=== PATIENT | female | born 1995 ===

== ENCOUNTER 2016-04-02 18:57 | Emergency (ER) | payer OTHER ==
--- NOTE | 2016-04-02 21:10 | ED ORDER SUMMARY ---
..... Patient: NOE MAGALLANES OrderSheet [facility] VisitID: [id number] [place] [address] 20y, F Registration Date/Time: 04/02/2016 ORDER SHEET Weight: 72.5 kg (stated) Allergies: None GENERAL ORDERS: US Pelvic Complete w Transvag Urgent (19:08 04/02/2016 EKoroleva P.A.-C) (Ack 19:12 LTapper) (21:00 AMcQuoid ER Tech1) UA-Culture if indicated Urgent (19:09 04/02/2016 EKoroleva P.A.-C) (Ack 19:12 LTapper) (Sent 19:36 IJurca ER Tech1) (19:50 AMcQuoid ER Tech1) Urine Urgent (19:09 04/02/2016 EKoroleva P.A.-C) (Ack 19:12 LTapper) (Sent 19:36 IJurca ER Tech1) (19:50 AMcQuoid ER Tech1) CBC w Diff Urgent (19:09 04/02/2016 EKoroleva P.A.-C) (Ack 19:12 LTapper) (Sent 19:22 IJurca ER Tech1) (19:50 AMcQuoid ER Tech1) CMP Urgent (19:09 04/02/2016 EKoroleva P.A.-C) (Ack 19:12 LTapper) (Sent 19:22 IJurca ER Tech1) (19:50 AMcQuoid ER Tech1) Wet Prep (Cervix) (c) Urgent (19:57 04/02/2016 EKoroleva P.A.-C) (Ack 20:10 IJurca ER Tech1) (20:23 HSoule) GC/Chlamydia (Cervix) (c) Urgent (19:57 04/02/2016 EKoroleva P.A.-C) (Ack 20:10 IJurca ER Tech1) (20:23 HSoule) MEDICATION ORDERS: Hydrocodone-APAP PO 10/650 mg (NOW, HIGH ALERT MEDICATION) (20:37 04/02/2016 EKoroleva P.A.-C) (Ack 20:39 HSoule) (21:07 HSoule) IV FLUIDS: ORDER SHEET NOTES: [Electronically signed by Kendal Melendez (:29 04/02/2016)] [Electronically signed by Neyda Castro P.A.-C (21:55 04/02/2016)] [Electronically locked/signed by Kendal Melendez (:29 04/02/2016)]
--- NOTE | 2016-04-02 21:10 | ED CLINICAL REPORT ---
Clinical Report - Physicians/Mid Levels [facility] [address] [place] [place] [address] 04/02/2016 18:58 Patient: NOE MAGALLANES Time Seen: 19:04 Apr 02 2016. Arrived- By private vehicle. Historian- patient. HISTORY OF PRESENT ILLNESS Chief Complaint: ABDOMINAL PAIN. It is described as located in the pelvic area and in the left pelvis. 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 No nausea, loss of appetite, vomiting or diarrhea. (Patient was abdominal pain and cramping over the last 3 weeks, worsening over the last 2 days. Reports currently on her menses, which is her normal time frame. Patient denies any diarrhea or emesis. Denies any fevers or chills or difficulty urinating. Sexually active with partner (male) in er, with no h/o std.). REVIEW OF SYSTEMS No constipation, black stools, difficulty with urination, pain with urination or urinary frequency. No fever, chest pain or chills. All systems otherwise negative, except as recorded above. PAST HISTORY Problems: Syncope. Medications: None. Allergies: None. SOCIAL HISTORY Smoker- current status unknown. No alcohol use or drug use. ADDITIONAL NOTES The nursing notes have been reviewed. PHYSICAL EXAM Vital Signs: 04/02/2016 19:06 BP: 114/67. HR: 60. RR: 18. O2 saturation: 97%. Temp: 99.5 F. Pain level now: 7/10. ENT: Ears normal. Nose normal. Pharynx normal. Neck: Normal inspection. No lymphadenopathy or thyromegaly. CVS: Normal heart rate and rhythm. Pulses normal. Respiratory: No respiratory distress. Breath sounds normal. No accessory muscle use or decreased air movement. Abdomen: Soft and nontender. No abdominal tenderness. The bowel sounds are not abnormal. Back: Normal inspection. No CVA tenderness. Neuro: Oriented X 3. LABS, X-RAYS, AND EKG Laboratory Tests: UA-Culture if indicated: (BENNY: 04/02/2016 19:33) ( MsgRcvd 04/02/2016 19:52) Final results Test Result Flag Units (Reference) URINE COLOR YELLOW URINE APPEARANCE CLEAR URINE GLUCOSE NEGATIVE (NEGATIVE) URINE BILIRUBIN NEGATIVE (NEGATIVE) URINE KETONE NEGATIVE (NEGATIVE) URINE SPECIFIC GRAVITY 1.015 (1.010-1.030) URINE PH 7.0 (5.0-8.0) URINE PROTEIN NEGATIVE (NEGATIVE) URINE UROBILINOGEN 0.2 EU/dL (0.2-1.0) URINE NITRITE NEGATIVE (NEGATIVE) URINE BLOOD 2+ (NEGATIVE) URINE LEUK ESTERASE NEGATIVE (NEGATIVE) URINE RBC 5-10 rbc/hpf (0-1) URINE WBC 0-1 wbc/hpf (0-1) URINE EPITHELIAL CELLS 0-1 EPI/hpf (0-5) URINE BACTERIA NONE SEEN (NONE SEEN) URINE COMMENT CULT NOT INDICATED URINE CULTURES ARE SET-UP BASED ON THE FOLLOWING CRITERIA:POSITIVE NITRITEPOSITIVE LEUKOCYTE ESTERASEGREATER THAN 10 WHITE BLOOD CELLSMODERATE (2+) OR GREATER BACTERIA Urine: (BENNY: 04/02/2016 19:33) ( [facility] 04/02/2016 19:44) Final results Test Result Flag Units (Reference) URINE NEGATIVE CBC w Diff: (BENNY: 04/02/2016 19:15) ( [facility] 04/02/2016 19:28) Final results Test Result Flag Units (Reference) WHITE BLOOD COUNT 8.9 K/uL (4.5-11.5) RED BLOOD COUNT 4.74 M/uL (4.00-5.20) HEMOGLOBIN 12.9 gm/dL (12.0-16.0) HEMATOCRIT 38.6 % (36.0-46.0) MEAN CELL VOLUME 82 fL (80-100) MEAN CORPUSCULAR HGB 27 pg (26-34) MEAN CORPUSCULAR HGB CONC 34 g/dL (31-37) RED CELL DISTRIBUTION WIDTH 14.9 H % (11.6-14.8) PLATELET COUNT 346 K/uL (150-400) NEUTROPHIL % 59.7 % (50-75) LYMPH % 31.9 % (25-40) MONO % 4.5 % (3-14) EOSINOPHIL % 3.6 % (0-4) BASOPHIL % 0.3 % (0-2) CMP: (BENNY: 04/02/2016 19:15) ( [facility] 04/02/2016 19:46) Final results Test Result Flag Units (Reference) GLUCOSE 103 mg/dL (70-110) BUN 11 mg/dL (7-18) CREATININE 0.8 mg/dL (0.6-1.3) Estimated GFR >60 mL/min Estimated GFR- >60 mL/min Note: Persistent reduction over 3 months in eGFR<60 mL/min/1.73 m2 defines CKD. Patients with eGFR values>=60 mL/min/1.73 m2 may also have CKD if evidence ofpersistent proteinuria. Additional information may be foundat www.[email or web address].org. SODIUM 140 mmol/L (136-145) POTASSIUM 3.8 mmol/L (3.5-5.1) CHLORIDE 103 mmol/L (98-107) CARBON DIOXIDE 26 mmol/L (21-32) CALCIUM 9.2 mg/dL (8.5-10.1) TOTAL PROTEIN 7.9 g/dL (6.4-8.2) ALBUMIN 3.9 g/dL (3.3-5.0) BILIRUBIN, TOTAL 0.2 mg/dL (0.0-1.0) ALKALINE PHOSPHATASE 84 U/L (46-116) AST (SGOT) 10 L U/L (15-37) ALT (SGPT) 21 U/L (12-78) Wet Prep: (BENNY: 04/02/2016 19:25) ( [facility] 04/02/2016 20:07) Final results SPECIMEN DESCRIPTION: C Test Result Flag Units (Reference) WET MOUNT CLUE CELLS:: NONE EPITHELIAL CELLS: FEW -- SOURCE?: CERVIX WHITE BLOOD CELLS: FEW TRICHOMONAS:: NONE -- YEAST:: NONE . Note - Tests: (US NEG). PROGRESS AND PROCEDURES Course of Care: Chaperoned pelvic exam During the time in the ED, the following DDX were considered: acute surgical abdomen, hemodynamic or metabolic instability, dehydration, gastroenteritis-viral, food borne, or bacterial, food intolerance, irritable or inflammatory bowel, infection, sepsis. NO mcburneys pt tendernss, neg upreg, no signs of torsion, no signs of toa. 04/02/2016 21:15 BP: 112/60. HR: 70. RR: 20. O2 saturation: 98%. Temp: 99 F. Pain level now: 8/10. Patient is stable. Physical exam findings are improved. Symptoms better. Patient/family counseled. Differential Diagnosis: I considered gastric etiology, gastritis, acute appendicitis, diverticulitis, biliary colic, hepatitis, splenic injury, splenic rupture, splenic infarction, splenic abscess, intraabdominal abscess, urinary tract infection, cystitis, ovarian cyst, pelvic inflammatory disease, pelvic abscess and abdominal aortic aneurysm as a possible cause of abdominal pain in this patient. This is a partial list of diagnoses considered. Disposition: Discharged. CLINICAL IMPRESSION Acute pelvic pain. INSTRUCTIONS Drink plenty of fluids. Prescription Medications: Ultram 50 mg: take 1 orally every 6 hours for 3 days, as needed for pain. Dispense ten (10). No refills. Substitution is permissible. OTC Medications: Take acetaminophen (Tylenol, Datril, etc.) and ibuprofen (Advil, Nuprin, etc.) according to label instructions. Available over the counter. Follow-up: Follow up with your doctor in three days. Follow-up with: Mack Spaulding MD, Obstetrics/Gynecology, , [facility], [address] [place] [address] Follow up. Call for the next available appointment. (Electronically signed by Neyda Castro P.A.-C 04/02/2016 21:55)
--- NOTE | 2016-04-02 21:10 | ED ORDER SUMMARY ---
..... Patient: NOE MAGALLANES OrderSheet [facility] VisitID: [id number] [place] [address] 20y, F Registration Date/Time: 04/02/2016 ORDER SHEET Weight: 72.5 kg (stated) Allergies: None GENERAL ORDERS: US Pelvic Complete w Transvag Urgent (19:08 04/02/2016 EKoroleva P.A.-C) (Ack 19:12 LTapper) (21:00 AMcQuoid ER Tech1) UA-Culture if indicated Urgent (19:09 04/02/2016 EKoroleva P.A.-C) (Ack 19:12 LTapper) (Sent 19:36 IJurca ER Tech1) (19:50 AMcQuoid ER Tech1) Urine Urgent (19:09 04/02/2016 EKoroleva P.A.-C) (Ack 19:12 LTapper) (Sent 19:36 IJurca ER Tech1) (19:50 AMcQuoid ER Tech1) CBC w Diff Urgent (19:09 04/02/2016 EKoroleva P.A.-C) (Ack 19:12 LTapper) (Sent 19:22 IJurca ER Tech1) (19:50 AMcQuoid ER Tech1) CMP Urgent (19:09 04/02/2016 EKoroleva P.A.-C) (Ack 19:12 LTapper) (Sent 19:22 IJurca ER Tech1) (19:50 AMcQuoid ER Tech1) Wet Prep (Cervix) (c) Urgent (19:57 04/02/2016 EKoroleva P.A.-C) (Ack 20:10 IJurca ER Tech1) (20:23 HSoule) GC/Chlamydia (Cervix) (c) Urgent (19:57 04/02/2016 EKoroleva P.A.-C) (Ack 20:10 IJurca ER Tech1) (20:23 HSoule) MEDICATION ORDERS: Hydrocodone-APAP PO 10/650 mg (NOW, HIGH ALERT MEDICATION) (20:37 04/02/2016 EKoroleva P.A.-C) (Ack 20:39 HSoule) (21:07 HSoule) IV FLUIDS: ORDER SHEET NOTES: [Electronically signed by Kendal Melendez (:29 04/02/2016)] [Electronically signed by Neyda Castro P.A.-C (21:55 04/02/2016)] [Electronically locked/signed by Kendal Melendez (:29 04/02/2016)]
--- NOTE | 2016-04-02 21:10 | ED CLINICAL REPORT ---
Clinical Report - Physicians/Mid Levels [facility] [address] [place] [address] 04/02/2016 18:58 Patient: NOE MAGALLANES Time Seen: 19:04 Apr 02 2016. Arrived- By private vehicle. Historian- patient. HISTORY OF PRESENT ILLNESS Chief Complaint: ABDOMINAL PAIN. It is described as located in the pelvic area and in the left pelvis. 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 No nausea, loss of appetite, vomiting or diarrhea. (Patient was abdominal pain and cramping over the last 3 weeks, worsening over the last 2 days. Reports currently on her menses, which is her normal time frame. Patient denies any diarrhea or emesis. Denies any fevers or chills or difficulty urinating. Sexually active with partner (male) in er, with no h/o std.). REVIEW OF SYSTEMS No constipation, black stools, difficulty with urination, pain with urination or urinary frequency. No fever, chest pain or chills. All systems otherwise negative, except as recorded above. PAST HISTORY Problems: Syncope. Medications: None. Allergies: None. SOCIAL HISTORY Smoker- current status unknown. No alcohol use or drug use. ADDITIONAL NOTES The nursing notes have been reviewed. PHYSICAL EXAM Vital Signs: 04/02/2016 19:06 BP: 114/67. HR: 60. RR: 18. O2 saturation: 97%. Temp: 99.5 F. Pain level now: 7/10. ENT: Ears normal. Nose normal. Pharynx normal. Neck: Normal inspection. No lymphadenopathy or thyromegaly. CVS: Normal heart rate and rhythm. Pulses normal. Respiratory: No respiratory distress. Breath sounds normal. No accessory muscle use or decreased air movement. Abdomen: Soft and nontender. No abdominal tenderness. The bowel sounds are not abnormal. Back: Normal inspection. No CVA tenderness. Neuro: Oriented X 3. LABS, X-RAYS, AND EKG Laboratory Tests: UA-Culture if indicated: (BENNY: 04/02/2016 19:33) ( MsgRcvd 04/02/2016 19:52) Final results Test Result Flag Units (Reference) URINE COLOR YELLOW URINE APPEARANCE CLEAR URINE GLUCOSE NEGATIVE (NEGATIVE) URINE BILIRUBIN NEGATIVE (NEGATIVE) URINE KETONE NEGATIVE (NEGATIVE) URINE SPECIFIC GRAVITY 1.015 (1.010-1.030) URINE PH 7.0 (5.0-8.0) URINE PROTEIN NEGATIVE (NEGATIVE) URINE UROBILINOGEN 0.2 EU/dL (0.2-1.0) URINE NITRITE NEGATIVE (NEGATIVE) URINE BLOOD 2+ (NEGATIVE) URINE LEUK ESTERASE NEGATIVE (NEGATIVE) URINE RBC 5-10 rbc/hpf (0-1) URINE WBC 0-1 wbc/hpf (0-1) URINE EPITHELIAL CELLS 0-1 EPI/hpf (0-5) URINE BACTERIA NONE SEEN (NONE SEEN) URINE COMMENT CULT NOT INDICATED URINE CULTURES ARE SET-UP BASED ON THE FOLLOWING CRITERIA:POSITIVE NITRITEPOSITIVE LEUKOCYTE ESTERASEGREATER THAN 10 WHITE BLOOD CELLSMODERATE (2+) OR GREATER BACTERIA Urine: (BENNY: 04/02/2016 19:33) ( [facility] 04/02/2016 19:44) Final results Test Result Flag Units (Reference) URINE NEGATIVE CBC w Diff: (BENNY: 04/02/2016 19:15) ( [facility] 04/02/2016 19:28) Final results Test Result Flag Units (Reference) WHITE BLOOD COUNT 8.9 K/uL (4.5-11.5) RED BLOOD COUNT 4.74 M/uL (4.00-5.20) HEMOGLOBIN 12.9 gm/dL (12.0-16.0) HEMATOCRIT 38.6 % (36.0-46.0) MEAN CELL VOLUME 82 fL (80-100) MEAN CORPUSCULAR HGB 27 pg (26-34) MEAN CORPUSCULAR HGB CONC 34 g/dL (31-37) RED CELL DISTRIBUTION WIDTH 14.9 H % (11.6-14.8) PLATELET COUNT 346 K/uL (150-400) NEUTROPHIL % 59.7 % (50-75) LYMPH % 31.9 % (25-40) MONO % 4.5 % (3-14) EOSINOPHIL % 3.6 % (0-4) BASOPHIL % 0.3 % (0-2) CMP: (BENNY: 04/02/2016 19:15) ( [facility] 04/02/2016 19:46) Final results Test Result Flag Units (Reference) GLUCOSE 103 mg/dL (70-110) BUN 11 mg/dL (7-18) CREATININE 0.8 mg/dL (0.6-1.3) Estimated GFR >60 mL/min Estimated GFR- >60 mL/min Note: Persistent reduction over 3 months in eGFR<60 mL/min/1.73 m2 defines CKD. Patients with eGFR values>=60 mL/min/1.73 m2 may also have CKD if evidence ofpersistent proteinuria. Additional information may be foundat www.[email or web address].org. SODIUM 140 mmol/L (136-145) POTASSIUM 3.8 mmol/L (3.5-5.1) CHLORIDE 103 mmol/L (98-107) CARBON DIOXIDE 26 mmol/L (21-32) CALCIUM 9.2 mg/dL (8.5-10.1) TOTAL PROTEIN 7.9 g/dL (6.4-8.2) ALBUMIN 3.9 g/dL (3.3-5.0) BILIRUBIN, TOTAL 0.2 mg/dL (0.0-1.0) ALKALINE PHOSPHATASE 84 U/L (46-116) AST (SGOT) 10 L U/L (15-37) ALT (SGPT) 21 U/L (12-78) Wet Prep: (BENNY: 04/02/2016 19:25) ( [facility] 04/02/2016 20:07) Final results SPECIMEN DESCRIPTION: C Test Result Flag Units (Reference) WET MOUNT CLUE CELLS:: NONE EPITHELIAL CELLS: FEW -- SOURCE?: CERVIX WHITE BLOOD CELLS: FEW TRICHOMONAS:: NONE -- YEAST:: NONE . Note - Tests: (US NEG). PROGRESS AND PROCEDURES Course of Care: Chaperoned pelvic exam During the time in the ED, the following DDX were considered: acute surgical abdomen, hemodynamic or metabolic instability, dehydration, gastroenteritis-viral, food borne, or bacterial, food intolerance, irritable or inflammatory bowel, infection, sepsis. NO mcburneys pt tendernss, neg upreg, no signs of torsion, no signs of toa. 04/02/2016 21:15 BP: 112/60. HR: 70. RR: 20. O2 saturation: 98%. Temp: 99 F. Pain level now: 8/10. Patient is stable. Physical exam findings are improved. Symptoms better. Patient/family counseled. Differential Diagnosis: I considered gastric etiology, gastritis, acute appendicitis, diverticulitis, biliary colic, hepatitis, splenic injury, splenic rupture, splenic infarction, splenic abscess, intraabdominal abscess, urinary tract infection, cystitis, ovarian cyst, pelvic inflammatory disease, pelvic abscess and abdominal aortic aneurysm as a possible cause of abdominal pain in this patient. This is a partial list of diagnoses considered. Disposition: Discharged. CLINICAL IMPRESSION Acute pelvic pain. INSTRUCTIONS Drink plenty of fluids. Prescription Medications: Ultram 50 mg: take 1 orally every 6 hours for 3 days, as needed for pain. Dispense ten (10). No refills. Substitution is permissible. OTC Medications: Take acetaminophen (Tylenol, Datril, etc.) and ibuprofen (Advil, Nuprin, etc.) according to label instructions. Available over the counter. Follow-up: Follow up with your doctor in three days. Follow-up with: Mack Spaulding MD, Obstetrics/Gynecology, , [facility], [address] [place] [address] Follow up. Call for the next available appointment. (Electronically signed by Neyda Castro P.A.-C 04/02/2016 21:55)
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
--- NOTE | 2016-04-02 21:55 | ED MAR SUMMARY ---
..... Medication Administration Record [facility] [address] [place] [address] Patient: NOE MAGALLANES Visit ID: [id number] 20y, F Weight: 72.5 kg Height/Length: 63 in BMI: 28.3 ALLERGIES: None Given 20:52 04/02/2016 Kendal Melendez, Medication Administered: HYDROCODONE-APAP [PO] (HYDROCODONE-ACETAMINOPHEN), Dose: 2 tab 5/325 mg Tablets PO. Medication Ordered: Hydrocodone-APAP PO 10/650 mg (NOW, HIGH ALERT MEDICATION).
--- NOTE | 2016-04-02 21:55 | ED DISCHARGE INSTRUCTIONS ---
Patient: NOE MAGALLANES General Instructions [facility] VisitID: [id number] [place] [address] 20y, F Registration Date/Time: 04/02/2016 Acute pelvic pain. INSTRUCTIONS Drink plenty of fluids. Prescription Medications: Ultram 50 mg: take 1 orally every 6 hours for 3 days, as needed for pain. Dispense ten (10). No refills. Substitution is permissible. OTC Medications: Take acetaminophen (Tylenol, Datril, etc.) and ibuprofen (Advil, Nuprin, etc.) according to label instructions. Available over the counter. Follow-up: Follow up with your doctor in three days. Follow-up with: Mack Spaulding MD, Obstetrics/Gynecology, , [facility], [address] [place] [address] Follow up. Call for the next available appointment. ADDITIONAL INFORMATION Pelvic Pain, Uncertain Cause Based on your visit today, the exact cause of your pelvic pain is not certain. But your condition does not appear to be serious at this time. However, the signs of a serious problem may take more time to appear. Therefore, it is important for you to watch for any new symptoms or worsening of your condition. Home Care: Rest until you are feeling better. Avoid sexual intercourse until your pain goes away. You may use acetaminophen (Tylenol) or ibuprofen (Motrin, Advil) to control pain, unless another medicine was prescribed. [NOTE: If you have chronic liver or kidney disease or ever had a stomach ulcer or GI bleeding, talk with your doctor before using these medicines.] Follow Up with your doctor as advised. If a culture test was taken, call in two days for the results. If the culture is positive, you will be given more advice at that time. Otherwise, follow-up with your doctor or this facility as instructed. Get Prompt Medical Attention if any of the following occur: Fever of 100.4F (38C) or higher, or as directed by your healthcare provider Vaginal discharge Worsening pain Weakness, dizziness or fainting Unexpected vaginal bleeding or passage of flynn or white tissue from the vagina Pain that moves to the right lower abdomen You have been given the following additional information: Pelvic Pain, Unknown Cause (Electronically signed by Neyda Castro P.A.-C 04/02/2016 21:55)
--- NOTE | 2016-04-02 21:55 | ED MED RECONCILIATION SUMMARY ---
Patient: NOE MAGALLANES Medication Reconciliation Report [facility] VisitID: [id number] [address] [place] [place] [address] 20y, F Registration Date/Time: 04/02/2016 Weight: 72.5 kg Height/Length: 63 in. BMI: 28.3 ALLERGIES: None The patient's Home Medications are listed below: NONE. The source(s) of the original Home Medication information: patient The following Medications were given to the patient in the Emergency Department: Hydrocodone-APAP [PO] PO 2 tab, administered: 04/02/2016 8:52:00 PM The following Medications were prescribed to the patient: Take acetaminophen (Tylenol, Datril, etc.) and ibuprofen (Advil, Nuprin, etc.) according to label instructions. Available over the counter. -- Neyda Castro, P.A.-C Ultram 50 mg: take 1 orally every 6 hours for 3 days, as needed for pain. Dispense ten (10). No refills. Substitution is permissible. -- Neyda Castro, P.A.-C
--- NOTE | 2016-04-02 21:55 | ED MAR SUMMARY ---
..... Medication Administration Record [facility] [address] [place] [address] Patient: NOE MAGALLANES Visit ID: [id number] 20y, F Weight: 72.5 kg Height/Length: 63 in BMI: 28.3 ALLERGIES: None Given 20:52 04/02/2016 Kendal Melendez, Medication Administered: HYDROCODONE-APAP [PO] (HYDROCODONE-ACETAMINOPHEN), Dose: 2 tab 5/325 mg Tablets PO. Medication Ordered: Hydrocodone-APAP PO 10/650 mg (NOW, HIGH ALERT MEDICATION).
--- NOTE | 2016-04-02 21:55 | ED DISCHARGE INSTRUCTIONS ---
Patient: NOE MAGALLANES General Instructions [facility] VisitID: [id number] [place] [address] 20y, F Registration Date/Time: 04/02/2016 Acute pelvic pain. INSTRUCTIONS Drink plenty of fluids. Prescription Medications: Ultram 50 mg: take 1 orally every 6 hours for 3 days, as needed for pain. Dispense ten (10). No refills. Substitution is permissible. OTC Medications: Take acetaminophen (Tylenol, Datril, etc.) and ibuprofen (Advil, Nuprin, etc.) according to label instructions. Available over the counter. Follow-up: Follow up with your doctor in three days. Follow-up with: Mack Spaulding MD, Obstetrics/Gynecology, , [facility], [address] [place] [address] Follow up. Call for the next available appointment. ADDITIONAL INFORMATION Pelvic Pain, Uncertain Cause Based on your visit today, the exact cause of your pelvic pain is not certain. But your condition does not appear to be serious at this time. However, the signs of a serious problem may take more time to appear. Therefore, it is important for you to watch for any new symptoms or worsening of your condition. Home Care: Rest until you are feeling better. Avoid sexual intercourse until your pain goes away. You may use acetaminophen (Tylenol) or ibuprofen (Motrin, Advil) to control pain, unless another medicine was prescribed. [NOTE: If you have chronic liver or kidney disease or ever had a stomach ulcer or GI bleeding, talk with your doctor before using these medicines.] Follow Up with your doctor as advised. If a culture test was taken, call in two days for the results. If the culture is positive, you will be given more advice at that time. Otherwise, follow-up with your doctor or this facility as instructed. Get Prompt Medical Attention if any of the following occur: Fever of 100.4F (38C) or higher, or as directed by your healthcare provider Vaginal discharge Worsening pain Weakness, dizziness or fainting Unexpected vaginal bleeding or passage of flynn or white tissue from the vagina Pain that moves to the right lower abdomen You have been given the following additional information: Pelvic Pain, Unknown Cause (Electronically signed by Neyda Castro P.A.-C 04/02/2016 21:55)
--- NOTE | 2016-04-02 21:55 | ED MED RECONCILIATION SUMMARY ---
Patient: NOE MAGALLANES Medication Reconciliation Report [facility] VisitID: [id number] [address] [place] [address] 20y, F Registration Date/Time: 04/02/2016 Weight: 72.5 kg Height/Length: 63 in. BMI: 28.3 ALLERGIES: None The patient's Home Medications are listed below: NONE. The source(s) of the original Home Medication information: patient The following Medications were given to the patient in the Emergency Department: Hydrocodone-APAP [PO] PO 2 tab, administered: 04/02/2016 8:52:00 PM The following Medications were prescribed to the patient: Take acetaminophen (Tylenol, Datril, etc.) and ibuprofen (Advil, Nuprin, etc.) according to label instructions. Available over the counter. -- Neyda Castro, P.A.-C Ultram 50 mg: take 1 orally every 6 hours for 3 days, as needed for pain. Dispense ten (10). No refills. Substitution is permissible. -- Neyda Castro, P.A.-C
--- NOTE | 2016-04-02 22:04 | DIAGNOSTIC IMAGING REPORT ---
PROCEDURE: US COMPLETE PELVIC W/TRANSVAG INDICATION: Pelvic pain, left greater than right. TECHNIQUE: Transabdominal and endovaginal flynn scale and color Doppler sonographic images of the female pelvis were obtained. COMPARISON: None. FINDINGS: TRANSABDOMINAL SCANS: Uterus is of normal size (6.7 x 3.3 x 6.5 cm). Left kidney is normal. TRANSVAGINAL SCANS: Endometrial thickness is normal (7 mm). Ovaries are normal (right 2.7 cm, left 3.9 cm) with normal vascularity. No evidence of free fluid. Ectopic is not completely excluded on the basis of the study. IMPRESSION: 1. Negative pelvic ultrasound.
== END 2016-04-02 21:15 | disposition home or self-care (01) ==
LOC: ED SRH 18:57
DX: R10.2 Pelvic and perineal pain (principal); F17.210 Nicotine dependence, cigarettes, uncomplicated
CPT/HCPCS: 90004; 90100; 90195; 91227; 91228; 93070; 95059

== ENCOUNTER 2016-06-27 22:11 | Emergency (ER) | payer OTHER ==
--- NOTE | 2016-06-28 00:29 | ED CLINICAL REPORT ---
Clinical Report - Physicians/Mid Levels [facility] [address] [place] [place] [address] 06/27/2016 22:12 Patient: NOE MAGALLANES Time Seen: 22:48. Arrived- By private vehicle. Historian- patient. HISTORY OF PRESENT ILLNESS Chief Complaint: VOMITING and DIARRHEA. This started about 2 days ago and is still present. No recent travel. She has had nausea, diarrhea and moderate, crampy abdominal pain. She has had vomiting (patient states she has not been able to hold down any food or water.). No black stools, bloody stools, constipation, flank pain or history of possible bad food exposure. No known contact with a sick individual. Has not recently been camping or on antibiotics. The illness is described as moderate. Similar symptoms previously: Occasionally. Recent medical care: Not recently seen/assessed. REVIEW OF SYSTEMS No fever, muscle aches, difficulty with urination, dark urine or headache. No dizziness, sore throat, cough, chest pain or difficulty breathing. No excessive urination, skin rash, jaundice, fainting episodes or blurred vision. The patient has had moderate lower back pain (Bilateral). All systems otherwise negative, except as recorded above. PAST HISTORY Problems: Syncope. Additional Surgeries: Cataract Surgery. Medications: Vitamin D Oral. Allergies: Vicodin. SOCIAL HISTORY Smoker- current status unknown. Occasional alcohol use. No drug use. ADDITIONAL NOTES The nursing notes have been reviewed. PHYSICAL EXAM Vital Signs: 06/27/2016 22:50 BP: 105/69. HR: 96. RR: 16. O2 saturation: 98%. Temp: 99.5 F. Pain level now: 8/10. Have been reviewed. Appearance: Alert. Oriented X3. No acute distress. Eyes: Eyes normal inspection. ENT: Nose normal. Neck: Normal inspection. CVS: Normal heart rate and rhythm. Heart sounds normal. Pulses normal. Respiratory: No respiratory distress. Breath sounds normal. Abdomen: Soft and nontender. Back: Normal inspection. No CVA tenderness. Skin: Skin warm and dry. Normal skin color. No rash. Normal skin turgor. Extremities: Extremities exhibit normal ROM. No lower extremity edema. Neuro: Oriented X 3. No motor deficit. No sensory deficit. LABS, X-RAYS, AND EKG Laboratory Tests: UA-Culture if indicated: (BENNY: 06/27/2016 22:58) ( MsgRcvd 06/27/2016 23:16) Final results Test Result Flag Units (Reference) URINE COLOR YELLOW URINE APPEARANCE CLEAR URINE GLUCOSE NEGATIVE (NEGATIVE) URINE BILIRUBIN NEGATIVE (NEGATIVE) URINE KETONE 2+ (NEGATIVE) URINE SPECIFIC GRAVITY 1.025 (1.010-1.030) URINE PH 6.0 (5.0-8.0) URINE PROTEIN TRACE (NEGATIVE) URINE UROBILINOGEN 1.0 EU/dL (0.2-1.0) URINE NITRITE NEGATIVE (NEGATIVE) URINE BLOOD 1+ (NEGATIVE) URINE LEUK ESTERASE NEGATIVE (NEGATIVE) URINE RBC RARE rbc/hpf (0-1) URINE WBC 1-3 wbc/hpf (0-1) URINE EPITHELIAL CELLS 1-3 EPI/hpf (0-5) URINE BACTERIA TRACE (<1+) (NONE SEEN) URINE COMMENT CULT NOT INDICATED URINE CULTURES ARE SET-UP BASED ON THE FOLLOWING CRITERIA:POSITIVE NITRITEPOSITIVE LEUKOCYTE ESTERASEGREATER THAN 10 WHITE BLOOD CELLSMODERATE (2+) OR GREATER BACTERIA Urine: (BENNY: 06/27/2016 22:58) ( MsgRcvd 06/27/2016 23:13) Final results Test Result Flag Units (Reference) URINE NEGATIVE . Pulse Oximetry: 06/27/2016 22:50 O2 saturation: 98%. (FIO2 - room air). Interpretation: normal. PROGRESS AND PROCEDURES Course of Care: Patient was treated symptomatically with IV fluid, Zofran, and Toradol. She was worked up with the urinalysis and urine test both of which were unremarkable. Patient was found to be feeling better, and I did feel she likely had a viral syndrome causing her symptoms. We have discussed that the patient's symptoms will be self limited, and that management consists of symptomatic treatment. Patient counseled in person regarding the patient's stable condition, test results, diagnosis and need for follow-up. Concerns were addressed. Old medical records reviewed. Disposition: Discharged. Condition: stable and improved. CLINICAL IMPRESSION Acute viral gastroenteritis. INSTRUCTIONS Take clear liquids only (frequent sips; plenty of fluids) for the next 12 hours. Advance diet as tolerated. Warnings: GENERAL WARNINGS: Return or contact your physician immediately if your condition worsens or changes unexpectedly, if not improving as expected, or if other problems arise. Your Current Medications: CONTINUE TAKING THE FOLLOWING MEDICATIONS: Vitamin D Oral. Prescription Medications: Zofran (orally disintegrating tablets) 4 mg: take 1-2 orally every 6 hours as needed for nausea. Dispense fifteen (15). No refill. Substitution is permissible. Follow-up: Follow up with your doctor in three days if not better. Understanding of the discharge instructions verbalized by patient. (Electronically signed by Renata Arthur MD 06/28/2016 8:36)
--- NOTE | 2016-06-28 00:29 | ED NURSING NOTES ---
Clinical Report - Nurses [facility] [place] [address] 06/27/2016 22:12 Patient: NOE MAGALLANES TRIAGE Triage time 22:50. Acuity: LEVEL 4. Chief Complaint: ABDOMINAL PAIN, NAUSEA, VOMITING and DIARRHEA. Alert. No acute distress. SEPSIS SCREEN: Sepsis Screen: negative. Negative (no infection suspected/documented). --22:54 Tank Escobedo R.N. 22:50 06/27/16. BP: 105/69 (regular adult cuff) taken on the left arm, via an automated monitor, while sitting. HR: 96 (normal rate). RR: 16 (regular, unlabored and normal). O2 saturation: 98% on room air. Temp: 99.5 F (oral). Pain level now: 09/30. --22:54 Tank Escobedo R.N. Chief Complaint: (Sudden onset of abdominal discomfort, N, V yesterday.). --22:56 Tank Escobedo R.N. Weight: 68 kg stated. Height/Length: 63 inches Per Patient. BMI: 26.6. --22:50 Tank Escobedo R.N. Medications Vitamin D Oral. --22:51 Tank Escobedo R.N. Allergies Vicodin. --22:51 Tank Escobedo R.N. Medication/allergy information source: the patient. --22:54 Tank Escobedo R.N. History Arrived by private vehicle. Historian: patient. Accompanied by family. Primary physician (Dr. Delong). This started last night. She has had diarrhea, chills, fatigue, nausea and vomiting. She has had abdominal pain (Describes as discomfort, bloating). Reports muscle aches and experiencing sweating episodes. Last oral intake by patient was last night. PAST MEDICAL HX: Last normal menstrual period- This week. SOCIAL HX: Current some days smoker (cigarette). Occasional alcohol use. No drug use. She has not traveled outside the [place] The patient was not exposed to MRSA. ABUSE ASSESSMENT: Abuse assessment: The patient was asked "Do you feel safe in your home?" and "Has anyone hurt you or threatened to hurt you?". No report of abuse. SELF HARM ASSESSMENT: A self harm assessment was performed. The patient answered "no" to the question "Do you have thoughts of harming or killing yourself?" and "Have you recently had thoughts about harming or killing others?". FALL RISK ASSESSMENT: Fall risk assessment completed. No fall risk identified. NUTRITIONAL RISK ASSESSMENT: The nutritional risk assessment revealed no deficiencies. FUNCTIONAL ASSESSMENT: Functional assessment: no impairments noted. LEARNING NEEDS ASSESSMENT: The learning needs assessment revealed no barriers. SKIN INTEGRITY ASSESSMENT: Skin integrity risk assessment completed. No skin integrity risk identified. --22:54 Tank Escobedo R.N. PROBLEMS: Pelvic Pain. Syncope. --22:51 Tank Escobedo R.N. ADDITIONAL SURGERIES: Cataract Surgery. --22:51 Tank Escobedo R.N. Assessment GENERAL / NEURO / PSYCH: Alert. Oriented X 4. Appears in no acute distress. Patient appears calm and cooperative. RESPIRATORY: No respiratory distress. Respirations not labored. SKIN: Skin is warm and dry. --22:54 Tank Escobedo R.N. Interventions ID band on patient. To waiting room. --22:54 Tank Escobedo R.N. Patient ID band checked for patient name and birthdate: patient confirmed. Instructions provided to collect clean catch urine and patient verbalized understanding. Clean catch urine collected with return of yellow-colored cloudy urine; sample sent to lab for urinalysis and HCG. Specimen labeled in the presence of the patient. --23:01 Tank Escobedo R.N. NURSING PROGRESS NOTES 23:52 06/27/16. BP: 112/63. HR: 90. RR: 20. O2 saturation: 96% on room air. Pain level now: 10/31. --23:53 Kendal Melendez Pulse oximeter and NIBP monitor placed on patient. Patient gowned. Reassurance given to the patient. Two patient identifiers checked. Call light placed in reach. Side rails up x 1. Bed placed in lowest position. Brakes of bed on. Patient ready for evaluation- chart flagged and ED physician notified. --23:53 Kendal Melendez 00:21 06/28/2016 Site #1 started via IV in the right antecubital space with an 20g angiocath, with aseptic technique and good blood return; one attempt. Blood drawn: rainbow set. Labeled in the presence of the patient and sent to the lab. Saline lock flushed with 10 mL saline. --00:26 Kendal Melendez 00:06/28/2016 Started bag #1 1000 mL IV Fluids IV NS (Saline); at 1000 mL/hr over 1 hour(s) via site #1. Allergies verified and confirmed 5 rights. IV patency established. IV site checked: no pain, redness, or swelling. IV flushed thoroughly pre- and post-medication administration. --00:27 Kendal Melendez 00:06/28/2016 Zofran (Ondansetron HCl) IVP 8 mg given over 2 minute(s) via site #1. Allergies verified and confirmed 5 rights. IV patency established. IV site checked: no pain, redness, or swelling. IV flushed thoroughly pre- and post-medication administration. IVP given by RN. --00: Kendal Melendez :06/28/2016 Toradol IVP 30 mg given over 1 minute(s) via site #1. Allergies verified and confirmed 5 rights. IV patency established. IV site checked: no pain, redness, or swelling. IV flushed thoroughly pre- and post-medication administration. IVP given by RN. --00: Kendal Melendez :06/28/2016 IV Fluids IV NS Discontinued: bag #1 completed. Total amount infused: 1000 mL. IV patency established. IV site checked: no pain, redness, or swelling. IV flushed thoroughly. --01:12 Kendal Melendez. DISPOSITION / DISCHARGE 01:06/28/16. BP: 100/58. HR: 90. RR: 20. O2 saturation: 98% on room air. Temp: 99.5 F (oral). Pain level now: 10. --01:12 Kendal Melendez 01:06/28/2016 Site #1 removed upon discharge. Catheter intact. Bandaid applied. --01:12 Kendal Melendez 01:12 06/28/16. Condition at departure: stable. The goals identified in the patient's plan of care were met. No learning barriers present. Discharge instructions provided and reviewed with the patient. Reviewed medication(s) side effects, precautions, dosing and course information. Prescription(s) given to the patient. Reviewed fever care instructions. Reviewed need for increased fluid intake. Patient verbalized understanding. Written instructions provided in Welsh. ( Follow up with your PCP in three days if not better. Hydrate and rest. Return if symptoms worsen. Patient verbalized understanding and had no additional questions at this time.). The patient was discharged by the physician. She was discharged home and accompanied by site promotion agent. She left the Emergency Department ambulatory and via private vehicle. Firebrick Layer driving. ( Provider aware of vitals, patient clear for discharge). FALL RISK ASSESSMENT: Fall risk assessment completed. No fall risk identified. --01:12 Kendal Melendez. Locked/Released at 07/01/2016 1:02 by Kendal Melendez,
--- NOTE | 2016-06-28 00:29 | ED ORDER SUMMARY ---
..... Patient: NOE MAGALLANES OrderSheet [facility] VisitID: [id number] [address] [place] [address] 20y, F Registration Date/Time: 06/27/2016 ORDER SHEET Weight: 68.0 kg (stated) Allergies: Vicodin GENERAL ORDERS: UA-Culture if indicated Urgent (22:54 06/27/2016 JDeElena R.N. per protocol) (Ack 22:59 AMcQuoid ER Tech1) (23:02 JDeElena R.N.) Urine Urgent (22:54 06/27/2016 JDeElena R.N. per protocol) (Ack 22:59 AMcQuoid ER Tech1) (23:02 JDeElena R.N.) MEDICATION ORDERS: IV FLUIDS: IV NS : initial bolus 1000 mL (1000 mL/hr), then none - (NOW) (00:12 06/28/2016 Sarah LAWS) (0:27 HSoule) Toradol IV 30 mg (NOW) (00:12 06/28/2016 Sarah LAWS) (0:27 HSoule) Zofran IV 8 mg (NOW) (00:12 06/28/2016 Sarah LAWS) (0:27 HSoule) ORDER SHEET NOTES: [Electronically signed by Renata Arthur MD (08:36 06/28/2016)] [Electronically signed by Kendal Melendez (01:02 07/01/2016)] [Electronically locked/signed by Kendal Melendez (01:02 07/01/2016)]
--- NOTE | 2016-06-28 00:29 | ED ORDER SUMMARY ---
..... Patient: NOE MAGALLANES OrderSheet [facility] VisitID: [id number] [address] [place] [address] 20y, F Registration Date/Time: 06/27/2016 ORDER SHEET Weight: 68.0 kg (stated) Allergies: Vicodin GENERAL ORDERS: UA-Culture if indicated Urgent (22:54 06/27/2016 JDeElena R.N. per protocol) (Ack 22:59 AMcQuoid ER Tech1) (23:02 JDeElena R.N.) Urine Urgent (22:54 06/27/2016 JDeElena R.N. per protocol) (Ack 22:59 AMcQuoid ER Tech1) (23:02 JDeElena R.N.) MEDICATION ORDERS: IV FLUIDS: IV NS : initial bolus 1000 mL (1000 mL/hr), then none - (NOW) (00:12 06/28/2016 Sarah LAWS) (0:27 HSoule) Toradol IV 30 mg (NOW) (00:12 06/28/2016 Sarah LAWS) (0:27 HSoule) Zofran IV 8 mg (NOW) (00:12 06/28/2016 Sarah LAWS) (0:27 HSoule) ORDER SHEET NOTES: [Electronically signed by Renata Arthur MD (08:36 06/28/2016)] [Electronically signed by Kendal Melendez (01:02 07/01/2016)] [Electronically locked/signed by Kendal Melendez (01:02 07/01/2016)]
--- NOTE | 2016-07-01 01:02 | ED DISCHARGE INSTRUCTIONS ---
Patient: NOE MAGALLANES General Instructions [facility] VisitID: [id number] [place] [address] 20y, F Registration Date/Time: 06/27/2016 Acute viral gastroenteritis. INSTRUCTIONS Take clear liquids only (frequent sips; plenty of fluids) for the next 12 hours. Advance diet as tolerated. Warnings: GENERAL WARNINGS: Return or contact your physician immediately if your condition worsens or changes unexpectedly, if not improving as expected, or if other problems arise. Your Current Medications: CONTINUE TAKING THE FOLLOWING MEDICATIONS: Vitamin D Oral. Prescription Medications: Zofran (orally disintegrating tablets) 4 mg: take 1-2 orally every 6 hours as needed for nausea. Dispense fifteen (15). No refill. Substitution is permissible. Follow-up: Follow up with your doctor in three days if not better. Understanding of the discharge instructions verbalized by patient. ADDITIONAL INFORMATION Viral Gastroenteritis (6Yr-Adult) Gastroenteritis is another name for thestomach flu.It is most often caused by a virus that affects the stomach and intestinal tract. Symptoms include stomach cramping and fever, vomiting and/or diarrhea, and can last from 2 to 7 days. The danger from repeated vomiting or diarrhea is dehydration. This is the loss of too much water and minerals from the body. When this occurs, body fluids must be replaced. Antibiotics are not effective for this illness, but simple home treatment will be helpful. Home Care If symptoms are severe, rest at home for the next 24 hours. Avoid tobacco, caffeine, and alcohol use, which can worsen symptoms. Acetaminophen (Tylenol) or ibuprofen (Motrin, Advil) may be usedfor fever or pain unless another medication was prescribed. NOTE: If you have chronic liver or kidney disease or ever had a stomach ulcer or GI bleeding, talk with your doctor before using these medicines. Aspirin should never be used in anyone under 18 years of age who is ill with a fever. It may cause severe liver damage. If medicines for diarrhea or vomiting were prescribed, be sure they are takenonly as directed. If vomiting, drink small amounts of clear fluids (such as water, sports drinks, clear sodas) at frequent intervals to prevent dehydration. Start with 1 to 2 tablespoons every 10 minutes. Once vomiting stops, follow these guidelines: During The First 12 To 24 Hours follow the diet below: Beverages: Sport drinks like Gatorade, soft drinks without caffeine; laura radha, mineral water (plain or flavored), decaffeinated tea and coffee. Soups: Clear broth, consomm and bouillon Desserts: Plain gelatin (Jell-O), Popsicles and fruit juice bars. During The Next 24 Hours you may add the following to the above: Hot cereal, plain toast, bread, rolls, crackers Plain noodles, rice, mashed potatoes, chicken noodle or rice soup Unsweetened canned fruit (avoid pineapple), bananas Limit fat intake to less than 15 grams per day by avoiding margarine, butter, oils, mayonnaise, sauces, gravies, fried foods, peanut butter, meat, poultry, and fish. Limit fiber; avoid raw or cooked vegetables, fresh fruits (except bananas), and bran cereals. Limit caffeine and chocolate. Do not use spices or seasonings except salt. During The Next 24 Hours The patient can gradually resume a normal diet as symptoms lessen. Preventing Spread Hand washing with soap and water is the best way to prevent the spread of viruses. Caregivers should wash their hands before andafter touching the sick person. The sick person, as well as everyone in the family,should wash their hands after using the toilet and before meals. Clean the toilet after each use. People with diarrhea should not prepare food for others. If you are preparing your own foods, wash your hands before and after. Follow Up with your doctor as advised. Call your doctor if you are not improving over the next 2 to 3 days. If a stool (diarrhea) sample was taken, you may call in 2 days (or as directed) for the results. Get Prompt Medical Attention if any of the following occur: Increasing abdominal pain Continued vomiting (unable to keep liquids down) Frequent diarrhea (more than 5 times a day) Blood in vomit or stool (black or red color) Dark urine, reduced urine output, or extreme thirst Weakness, dizziness, fainting Drowsiness, confusion, stiff neck, or seizure Fever of 100.4F (38C) oral or higher, not better with fever medication New rash You have been given the following additional information: Gastroenteritis, Viral (6Y-Adult) (Electronically signed by Renata Arthur MD 06/28/2016 8:36)
--- NOTE | 2016-07-01 01:03 | ED MAR SUMMARY ---
..... Medication Administration Record [facility] [address] [place] [address] Patient: NOE MAGALLANES Visit ID: [id number] 20y, F Weight: 68.0 kg Height/Length: 63 in BMI: 26.6 ALLERGIES: Vicodin Start 00:06/28/2016 Kendal Melendez,, Stop 01:07 06/28/2016 Kendal Melendez, Medication Administered: IV NS (SALINE), Dose: IV Fluids over 1 hour(s), Rate: 1000 mL/hr, Dispensed: 1000 mL bag, Site: #1 right AC. Medication Ordered: IV NS : initial bolus 1000 mL (1000 mL/hr), then none - (NOW). Given :06/28/2016 Kendal Melendez, Medication Administered: TORADOL [IVP], Dose: 30 mg IVP over 1 minute(s), Site: #1 right AC. Medication Ordered: Toradol IV 30 mg (NOW). Given 06/28/2016 Kendal Melendez, Medication Administered: ZOFRAN [IVP] (ONDANSETRON HCL), Dose: 8 mg IVP over 2 minute(s), Site: #1 right AC. Medication Ordered: Zofran IV 8 mg (NOW).
--- NOTE | 2016-07-01 01:03 | ED MED RECONCILIATION SUMMARY ---
Patient: NOE MAGALLANES Medication Reconciliation Report [facility] VisitID: [id number] [address] [place] [address] 20y, F Registration Date/Time: 06/27/2016 Weight: 68.0 kg Height/Length: 63 in. BMI: 26.6 ALLERGIES: Vicodin The patient's Home Medications are listed below: CONTINUE TAKING THE FOLLOWING MEDICATIONS: Vitamin D Oral The source(s) of the original Home Medication information: patient The following Medications were given to the patient in the Emergency Department: IV NS IV Fluids bolus 0, then 1000 mL/hr, administered: 06/28/2016 12:27:00 AM Zofran [IVP] IVP 8 mg, administered: 06/28/2016 12:27:00 AM Toradol [IVP] IVP 30 mg, administered: 06/28/2016 12:27:00 AM The following Medications were prescribed to the patient: Zofran (orally disintegrating tablets) 4 mg: take 1-2 orally every 6 hours as needed for nausea. Dispense fifteen (15). No refill. Substitution is permissible. -- Renata Arthur MD
--- NOTE | 2016-07-01 01:03 | ED MAR SUMMARY ---
..... Medication Administration Record [facility] [address] [place] [address] Patient: NOE MAGALLANES Visit ID: [id number] 20y, F Weight: 68.0 kg Height/Length: 63 in BMI: 26.6 ALLERGIES: Vicodin Start 00:06/28/2016 Kendal Melendez,, Stop 01:07 06/28/2016 Kendal Melendez, Medication Administered: IV NS (SALINE), Dose: IV Fluids over 1 hour(s), Rate: 1000 mL/hr, Dispensed: 1000 mL bag, Site: #1 right AC. Medication Ordered: IV NS : initial bolus 1000 mL (1000 mL/hr), then none - (NOW). Given :06/28/2016 Kendal Melendez, Medication Administered: TORADOL [IVP], Dose: 30 mg IVP over 1 minute(s), Site: #1 right AC. Medication Ordered: Toradol IV 30 mg (NOW). Given 06/28/2016 Kendal Melendez, Medication Administered: ZOFRAN [IVP] (ONDANSETRON HCL), Dose: 8 mg IVP over 2 minute(s), Site: #1 right AC. Medication Ordered: Zofran IV 8 mg (NOW).
--- NOTE | 2016-07-01 01:03 | ED MED RECONCILIATION SUMMARY ---
Patient: NOE MAGALLANES Medication Reconciliation Report [facility] VisitID: [id number] [address] [place] [address] 20y, F Registration Date/Time: 06/27/2016 Weight: 68.0 kg Height/Length: 63 in. BMI: 26.6 ALLERGIES: Vicodin The patient's Home Medications are listed below: CONTINUE TAKING THE FOLLOWING MEDICATIONS: Vitamin D Oral The source(s) of the original Home Medication information: patient The following Medications were given to the patient in the Emergency Department: IV NS IV Fluids bolus 0, then 1000 mL/hr, administered: 06/28/2016 12:27:00 AM Zofran [IVP] IVP 8 mg, administered: 06/28/2016 12:27:00 AM Toradol [IVP] IVP 30 mg, administered: 06/28/2016 12:27:00 AM The following Medications were prescribed to the patient: Zofran (orally disintegrating tablets) 4 mg: take 1-2 orally every 6 hours as needed for nausea. Dispense fifteen (15). No refill. Substitution is permissible. -- Renata Arthur MD
== END 2016-06-28 01:15 | disposition home or self-care (01) ==
LOC: ED SRH 22:11
DX: A08.4 Viral intestinal infection, unspecified (principal); Z88.5 Allergy status to narcotic agent
CPT/HCPCS: 90004; 93070